=== PATIENT | male | born 1990 | race Caucasian/White ===

== ENCOUNTER 2019-02-06 19:19 | Emergency (ER) | payer MEDICAID, SELFPAY ==
[2019-02-06 19:23] VITALS: BP 141/79; PULSE 100; RESP 18; TEMP 36.1; O2SAT 95
[2019-02-06] MEDS: Ibuprofen 600 MG TAB PO (19:41)
--- NOTE | 2019-02-06 19:57 | DI.RAD_ITS ---
SYMPTOMS/DIAGNOSIS: PAIN, TENDER, SWELLING LATERAL, HYPERPLANTAR FLEX RIGHT ANKLE: Three views. No acute fracture or dislocation is seen. There is soft tissue swelling about the ankle laterally. No radiopaque foreign bodies are seen. IMPRESSION: No acute fracture or dislocation.
--- NOTE | 2019-02-06 20:10 | ED.GENADUL_ITS ---
Discharge Plan Disposition Patient Disposition: HOME Discharge Details Chief Complaint: Orthopedic Clinical Impression: Right ankle sprain Primary Care Provider: JOYCE SOTO ED Provider: Aleksey Sands Home Meds and New Rx's Prescriptions: New ibuprofen 600 mg tablet 600 mg PO Q8H PRN (Reason: pain) Qty: 30 RF: 0 Continued buprenorphine-naloxone [Suboxone] 8-2 mg Film 1 film SUBLINGUAL DAILY RF: 0 Discharge Instructions Instructions: Ankle Sprain (ED) Additional Instructions: Please take ibuprofen over the counter. Take 600mg by mouth every 6 hours as needed for pain. Please take acetaminophen (tylenol) - 650mg every 6 hours by mouth as needed for pain. Use orthopedic walking boot and crutches. You may bear weight on your injured ankle as tolerated. Please contact your primary care physician to arrange follow-up. You may need additional diagnostic testing if symptoms persist peer Return to the ER for any worsening or new concerning symptoms. Referrals: JOYCE SOTO [Primary Care Provider] - Discharge Data Discharge Date/Time-TO BE ENTERED AT DEPARTURE: 02/06/19 20:43 Medical Decision Making 28-year-old male here with hyper dorsiflexion injury of his right ankle with pain lateral ankle, tender palpation of her lateral malleolus and pain worse with ambulation. Patient neurologically intact distally. ice applied. Ibuprofen provided. X-ray of the right ankle reviewed and interpreted by radiology: IMPRESSION: 1. Negative for acute skeletal pathology. 2. Significant soft tissue swelling about the lateral malleolus in which internal derangement is a possibility considering the patient's inability to flex the foot. Consider MRI for evaluation of ligamentous and tendinous structures. Results reviewed with the patient. Suspect ankle sprain. Plan to treat with orthopedic boot and crutches. Patient was encouraged to follow-up with his primary care physician HPI General Mode of arrival: wheelchair . Date/Time Provider Initiated Documentation: 02/06/19 19:26 . Limitations to Documentation: no limitations . Information obtained by: patient . HPI Narrative: 28yo male here with injury to his right ankle. Patient notes he was hiking and tripped and hyperdorsiflexed ankle. Pain is moderate. Worse on palpation of lateral ankle and with ambulation. He has associated swelling. No other injury. No pain proximal lower leg. Related Data Home Medications Medication Instructions Recorded Confirmed buprenorphine-naloxone [Suboxone] 1 film SUBLINGUAL DAILY 02/06/19 02/06/19 ibuprofen 600 mg PO Q8H PRN #30 tab 02/06/19 Previous Rx's Medication Instructions Recorded ibuprofen 600 mg PO Q8H PRN #30 tab 02/06/19 Allergies Allergy/AdvReac Type Severity Reaction Status Date / Time Penicillins AdvReac Intermediate Nausea Unverified 02/06/19 19:30 General Stated Complaint: Orthopedic GONZALEZ: 3 Review of Systems Musculoskeletal Reports as per HPI Integumentary/Breasts Denies wounds Neurologic Denies sensory deficit PFSH Social History Smoking/Tobacco Use Status: Current every day Tobacco Type: cigarettes Alcohol Intake: never Drug use: Never Do you feel safe at home: Yes Do you feel safe in your relationship?: Yes Exam Const General: cooperative Orientation: alert and awake Cardio Rate: regular rate Rhythm: regular rhythm Pulses: dorsalis pedis pulses present on the right 2+ Skin Wounds: no wounds (ankle rt) Extrem Right lower extremity: ankle Details: tenderness Location: of the lateral malleolus and swelling Course Vital Signs Temperature 36.1 C L 02/06/19 19:23 Pulse 100 H 02/06/19 19:23 Respiratory Rate 18 02/06/19 19:23 Blood Pressure 141/79 H 02/06/19 19:23 Pulse Oximetry 95 02/06/19 19:23 Temperature 36.1 C L 02/06/19 19:23 Temperature Source Skin 02/06/19 19:23 Pulse 100 H 02/06/19 19:23 Respiratory Rate 18 02/06/19 19:23 Respiratory Effort Non-Labored 02/06/19 19:28 Blood Pressure 141/79 H 02/06/19 19:23 Blood Pressure Position Sitting 02/06/19 19:23 Pulse Oximetry 95 02/06/19 19:23 Oxygen Delivery Method Room Air 02/06/19 19:23 Oxygen Flow Rate 0 02/06/19 19:23 Pain Level 9 02/06/19 19:41 Lab/Test Results Lab/Test Results: Laboratory Tests Range/Units 02/06/19 19:26 Sodium Cancelled Potassium Cancelled Chloride Cancelled Carbon Dioxide Cancelled Anion Gap Cancelled BUN Cancelled Creatinine Cancelled Estimated GFR/1.73 m2 Cancelled Glucose Cancelled Calcium Cancelled
--- NOTE | 2019-02-06 20:12 | DI.VRAD_ITS ---
EXAM: XR Right Ankle EXAM DATE/TIME: 02/06/2019 7:37 PM CLINICAL HISTORY: 28 years old, male; Injury or trauma; Fall; Initial encounter; Swelling (edema); Ankle; Right; Patient HX: Pain tender, swelling lateral, hyperplantar. Flex. ; Additional info: Patient unable to flex foot. TECHNIQUE: Imaging protocol: XR Right ankle. Views: 3 or more views. COMPARISON: No relevant prior studies available. FINDINGS: Bones/joints: Preserved anatomic alignment and bone density. No acutely displaced fracture or dislocation. Soft tissues: Significant soft tissue swelling about the lateral malleolus. IMPRESSION: 1. Negative for acute skeletal pathology. 2. Significant soft tissue swelling about the lateral malleolus in which internal derangement is a possibility considering the patient's inability to flex the foot. Consider MRI for evaluation of ligamentous and tendinous structures. Dictated and Authenticated by: Conor Diego MD. Ordering:DEVIN Ryder MD
== END 2019-02-06 20:43 | disposition home or self-care (01) ==
PROVIDERS: Emergency Provider Student in an Organized Health Care Education/Training Program; PCP Family Medicine
DX: S93.401A Sprain of unspecified ligament of right ankle, initial encounter (principal); W18.49XA Other slipping, tripping and stumbling without falling, initial encounter; Y93.01 Activity, walking, marching and hiking
CPT/HCPCS: 29515; 36415; 80048; 99284; 73610; E0114; L4361